=== PATIENT | female | born 1965 | race African-American/Black ===

== ENCOUNTER 2019-11-03 21:22 | Emergency (ER) | payer OTHER ==
[~2019-11-03] VITALS: Ht 172.7 cm; Wt 86.2 kg
[2019-11-03] MEDS ORDERED: NORVASC 2.5 MG2.5 M1 PO (21:34)
[2019-11-03] MEDS ORDERED: ASA81BEC PO (21:35)
[2019-11-03] MEDS ORDERED: LISINOPRIL-HCT1 EAC2 (21:35)
[2019-11-03] MEDS ORDERED: LOVASTAT10 (21:36)
[2019-11-03] MEDS ORDERED: PREDNISONE 20 M20 MG PO (22:15)
[2019-11-03] MEDS ORDERED: PROMETH-CODEIN 65 ML PO (22:15)
[2019-11-03 22:32] VITALS: BP 171/86
== END 2019-11-03 22:33 | disposition home or self-care (01) ==
LOC: ER 21:22
DX: J40 Bronchitis, not specified as acute or chronic (principal); I10 Essential (primary) hypertension; F17.210 Nicotine dependence, cigarettes, uncomplicated; Z90.89 Acquired absence of other organs; Z90.710 Acquired absence of both cervix and uterus

== ENCOUNTER 2020-01-05 23:25 | Emergency (ER) | payer OTHER ==
[~2020-01-05] VITALS: Ht 172.7 cm; Wt 86.2 kg
[~2020-01-05 23:25] MED LIST: ASA81BEC PO; LISINOPRIL-HCT1 EAC2; LOVASTAT10; NORVASC 2.5 MG2.5 M1 PO; PREDNISONE 20 M20 MG PO; PROMETH-CODEIN 65 ML PO
[2020-01-06] MEDS ORDERED: PROMETH-CODEIN 65 ML PO (00:25)
[2020-01-06 01:00] VITALS: BP 187/89
== END 2020-01-06 01:05 | disposition home or self-care (01) ==
LOC: ER 23:25
DX: R05 Cough (principal); I10 Essential (primary) hypertension; F17.210 Nicotine dependence, cigarettes, uncomplicated; Z90.49 Acquired absence of other specified parts of digestive tract; Z98.890 Other specified postprocedural states